=== PATIENT | male | born 1945 | race Caucasian/White ===

== ENCOUNTER 2017-08-12 00:47 | Emergency (ER) | payer OTHER ==
[~2017-08-12] VITALS: Ht 177.8 cm; Wt 101.2 kg
[~2017-08-12 00:47] MED LIST: ADALAT CC30 MG; ATENOLOL25 MG; CARDURA1 MG; CARdura PO; CIPRO500 MG PO; GLIPIZIDE10 MG; HUMALOG100 UNIT/1; Hyzaar 100-25 Tablet PO; LEVSIN/SL0.125 MG SL; LOSARTAN-HCTZ1 EAC1; PROTONIX40 MG PO; Procardia Xl 30MG TAB PO; SYNTHROID50 MCG; TRAM1TAB98
[2017-08-12] MEDS ORDERED: XOPENEX0.63 MG/3 IH (06:45)
[2017-08-12] MEDS ORDERED: ZITHROMAX500 MG PO (06:45)
[2017-08-12] MEDS ORDERED: FLOVENT HFA10.6 GM IH (06:45)
[2017-08-12] MEDS ORDERED: ZYNCOF 20-400120 ML PO (06:45)
[2017-08-12] MEDS ORDERED: DOLOGESIC-DF 51 EACH PO (06:58)
== END 2017-08-12 07:05 | disposition home or self-care (01) ==
LOC: ER 00:47
DX: J40 Bronchitis, not specified as acute or chronic (principal); K08.89 Other specified disorders of teeth and supporting structures